=== PATIENT | female | born 1995 | race African-American/Black ===

== ENCOUNTER 2020-03-31 18:07 | Emergency (ER) | payer BC ==
[~2020-03-31] VITALS: Ht 162.6 cm; Wt 124.7 kg
[~2020-03-31 18:07] MED LIST: PROAIR HFA8.5 GM INH
[2020-03-31 18:28] LABS: URINE BILIRUBIN NEGATIVE (Negative); URINE BLOOD NEGATIVE (Negative); URINE CLARITY CLEAR; URINE COLOR YELLOW; URINE GLUCOSE-RANDOM* NEGATIVE (Negative); URINE KETONES NEGATIVE (Negative); URINE LEUKOCYTES-REFLEX NEGATIVE (Negative); URINE NITRITE-REFLEX NEGATIVE (Negative); URINE PROTEIN (DIPSTICK) NEGATIVE (Negative); URINE SPECIFIC GRAVITY 1.015 (1.005-1.035); URINE UROBILINOGEN 0.2 E.U./dl (0.2-1.0)
[2020-03-31 22:23] VITALS: BP 162/87
== END 2020-03-31 22:24 | disposition home or self-care (01) ==
LOC: ER 18:07
PROVIDERS: Nurse Practitioner
DX: N39.0 Urinary tract infection, site not specified (principal); Z79.899 Other long term (current) drug therapy